=== PATIENT | female | born 1980 | race Caucasian/White ===

== ENCOUNTER 2019-10-28 13:38 | Emergency (ER) | payer OTHER, SELFPAY ==
[2019-10-28 14:10] VITALS: BP 140/72; PULSE 92; RESP 14; TEMP 36.8; O2SAT 100
--- NOTE | 2019-10-28 15:02 | ED.URI ---
HPI - URI/Sore Throat General Chief Complaint: Upper Respiratory Infection Stated Complaint: ear and sinus inf Time Seen by Provider: 10/28/19 15:03 Source: patient and RN notes reviewed Mode of arrival: ambulatory Limitations: no limitations History of Present Illness HPI Narrative: 39 year old female who presents to express care with complaints of sinus pressure and left ear pain since yesterday. Patient states she has noted some yellowish watery drainage from her left ear also with the throbbing pain in her ear. Patient states that she has been taking Ibuprofen and sinus medication for her sinus drainage and pressure. Patient denies any fevers chills or sweats, denies any cough, shortness of breath or any wheezing, SAO2 100% on room air. Patient states that she did not take a flu immunization this season. MD elicited complaint: rhinorrhea, nasal congestion and other (left ear pain) Pertinent past history: other (previous ear infections) Onset (ago): day(s) (1) Consistency: progressively worsening Able to tolerate fluids by mouth: Yes Exacerbating factors: changing head position Relieving factors: nothing Treatments prior to arrival: ibuprofen and other (sinus medication) Related Data Home Medications Medication Instructions Recorded Confirmed bupropion HCl 100 mg PO DAILY 10/28/19 10/28/19 buspirone 30 mg PO DAILY 10/28/19 10/28/19 citalopram 20 mg PO DAILY 10/28/19 10/28/19 gabapentin 600 mg PO BID 10/28/19 10/28/19 Allergies Allergy/AdvReac Type Severity Reaction Status Date / Time haloperidol [From Haldol] Allergy Unknown Verified 10/28/19 14:17 Review of Systems Review of Systems: Narrative: CONSTITUTIONAL: Denies fever, chills, or sweats. EYES: Denies visual changes, redness, or discharge. ENT:positive yellow rhinorrhea, congestion, sinus pressure,no sore throat, left ear otalgia with drainage CARDIOVASCULAR: Denies chest pain, palpitations, or edema. RESPIRATORY: Denies cough or dyspnea. GASTROINTESTINAL: Denies abdominal pain, nausea, vomiting, or diarrhea. GENITOURINARY: Denies dysuria or hematuria. SKIN: Denies rash or itching. MUSCULOSKELETAL: Denies back pain, joint pain, or myalgia. NEUROLOGIC: Denies headache, numbness, or weakness. PSYCHIATRIC: Denies anxiety or depression. All systems reviewed & are unremarkable except as noted in HPI and below PMFSH Past Medical History Medical History (Updated 11/02/19 @ 17:15 by Tsering Healy NP) Anxiety and depression Fracture of both arms Leg fracture, left Otitis media Tourettes syndrome Surgical History Surgical History (Updated 11/02/19 @ 17:15 by Tsering Healy NP) History of cholecystectomy Hx of tonsillectomy Social History Social History (Updated 11/02/19 @ 17:16 by Tsering Healy NP) Smoking status: Former smoker Tobacco type: cigarettes Additional smoking assessment comments: vapes past 6 month Living arrangements: with family Gender identity (if verbalized by the patient): Female Comments At time of signature, agree with nursing past medical, social history. There is no relevant family history pertinent to the presenting complaint Exam Narrative: Exam Narrative: GENERAL: Well-appearing, well-nourished, and in no acute distress. HEAD: Normocephalic, atraumatic. EYES: PERRLA and EOMI. ENT: Nares red swollen yellow rhinorrhea no epistaxis. Mucous membranes moist.left TM red with canal red and yellow drainage noted, Right TM normal with good light reflex, throat pink with no lesions or exudates, no tonsil enlargement NECK: Supple.no lymphadenopathy CHEST: Clear to auscultation. No respiratory distress.SAO2 100% ON ROOM AIR HEART: Regular rate and rhythm. No murmur heard. Normal peripheral pulses. ABDOMEN: Soft, nontender, nondistended, normal active bowel sounds. EXTREMITIES: Normal range of motion. No edema. SKIN: Warm, dry, no rash. NEURO: No focal deficits. Alert and oriented x3. Course Vital Signs Vital sig
== END 2019-10-28 15:30 | disposition home or self-care (01) ==
PROVIDERS: Emergency Provider Registered Nurse
DX: H65.02 Acute serous otitis media, left ear (principal); H60.502 Unspecified acute noninfective otitis externa, left ear; Z87.891 Personal history of nicotine dependence
CPT/HCPCS: 99203; G0463

== ENCOUNTER 2020-02-12 13:15 | Emergency (ER) | payer OTHER, SELFPAY ==
[2020-02-12 13:22] VITALS: BP 117/78; PULSE 90; RESP 14; TEMP 36.7; O2SAT 98
--- NOTE | 2020-02-12 13:34 | ED.FEMALEGU ---
HPI - Female Genitourinary General Chief complaint: Urogenital-Female Stated complaint: bladder infection Time Seen by Provider: 02/12/20 13:34 Source: patient and RN notes reviewed History of Present Illness HPI Narrative: Patient is a 39-year-old female who presents the urgent care with complaints of a possible UTI. Patient states that she does have history of urinary tract infections and was diagnosed approximately 1 month ago. Patient states that within the last week symptoms have returned in the last 2 days have been worse. Patient reports of dysuria, urgency, frequency, suprapubic bloating/pressure. Patient denies any fever, chills, nausea, vomiting, back pain or abdominal pain. States that she took Azo a few days ago. Was on Macrobid 1 month ago. No other acute complaints. No acute distress noted. Patient aware the plan of care. Related Data Home Medications Medication Instructions Recorded Confirmed bupropion HCl 100 mg PO DAILY 10/28/19 02/12/20 buspirone 30 mg PO DAILY 10/28/19 02/12/20 citalopram 20 mg PO DAILY 10/28/19 02/12/20 gabapentin 600 mg PO BID 10/28/19 02/12/20 Allergies Allergy/AdvReac Type Severity Reaction Status Date / Time haloperidol [From Haldol] Allergy Swelling Verified 02/12/20 13:30 of Lip/Tongue/Throat Review of Systems Review of Systems: Narrative: CONSTITUTIONAL: Denies fever, chills, or sweats. EYES: Denies visual changes, redness, or discharge. ENT: Denies rhinorrhea, congestion, sore throat, or otalgia. CARDIOVASCULAR: Denies chest pain, palpitations, or edema. RESPIRATORY: Denies cough or dyspnea. GASTROINTESTINAL: Denies abdominal pain, nausea, vomiting, or diarrhea. GENITOURINARY: Reports of dysuria, urinary frequency, urinary urgency and mild suprapubic pressure SKIN: Denies rash or itching. MUSCULOSKELETAL: Denies back pain, joint pain, or myalgia. NEUROLOGIC: Denies headache, numbness, or weakness. All other systems reviewed are negative, except as documented in HPI. [facility] Past Medical History Medical History (Updated 02/12/20 @ 13:51 by ANGELA Stallworth) Anxiety and depression Fracture of both arms Leg fracture, left Otitis media Tourettes syndrome Surgical History Surgical History (Updated 11/02/19 @ 17:15 by Tsering Healy NP) History of cholecystectomy Hx of tonsillectomy Social History Social History (Updated 11/02/19 @ 17:16 by Tsering Healy NP) Smoking status: Former smoker Tobacco type: cigarettes Additional smoking assessment comments: vapes past 6 month Gender identity (if verbalized by the patient): Female Comments At the time of my signature, I reviewed and agree with the nursing past medical, surgical, social, and family history. There is no relevant family history pertinent to the patient complaint. Exam Narrative: Exam Narrative: GENERAL: This is a well-nourished, well-developed patient, in no apparent distress. HEAD: normocephalic, atraumatic. EYES: PERRL. Sclera clear/white. Vision is grossly intact. EARS: External ears normal NOSE: External nose normal with no obvious nasal discharge, nares without redness, no rhinorrhea. THROAT: Mucous membranes moist NECK: Neck supple GASTROINTESTINAL: Abdomen soft, non-tender, nondistended. SKIN: warm, intact with no suspicious lesions or rash, good texture and turgor. NEURO: awake, alert, and oriented to person, place and time. There were no obvious focal neurologic abnormalities. EXTREMITIES: No clubbing, cyanosis, or edema. BACK: Negative bilateral CVA tenderness Course Vital Signs Vital signs: Vital Signs Temperature 98.1 F 02/12/20 13:22 Pulse Rate 90 02/12/20 13:22 Respiratory Rate 14 02/12/20 13:22 Blood Pressure 117/78 02/12/20 13:22 Pulse Oximetry 98 02/12/20 13:22 Temperature 98.1 F 02/12/20 13:22 Pulse Rate 90 02/12/20 13:22 Respiratory Rate 14 02/12/20 13:22 Blood Pressure 117/78 02/12/20 13:22 Pulse Oximetr
== END 2020-02-12 14:03 | disposition home or self-care (01) ==
PROVIDERS: Emergency Provider Nurse Practitioner Family
DX: N39.0 Urinary tract infection, site not specified (principal); F41.9 Anxiety disorder, unspecified; F32.9 Major depressive disorder, single episode, unspecified; F95.2 Tourette's disorder; F17.290 Nicotine dependence, other tobacco product, uncomplicated
CPT/HCPCS: 81003; 87077; 87086; 87088; 87186; 99213; G0463

== ENCOUNTER 2020-05-16 12:49 | Emergency (ER) | payer OTHER, SELFPAY ==
[2020-05-16 12:55] VITALS: BP 138/80; PULSE 80; RESP 20; TEMP 39.3; O2SAT 100
--- NOTE | 2020-05-16 13:08 | ED.GENADULT ---
HPI - General Adult General Chief complaint: Urogenital-Female Stated complaint: pain with urination/frequency/headaches Time Seen by Provider: 05/16/20 13:08 Source: patient Mode of arrival: ambulatory Limitations: no limitations History of Present Illness HPI narrative: 40-year-old female patient presents to the [facility] with complaints of urinary symptoms for the past 2 weeks. Patient states she has had urgency, burning and pain with urination. Patient states she started running a fever today. Denies any low back pain. Denies any nausea, vomiting or diarrhea. Patient states this is been going on and off for the last couple of months however she is just been trying to drink a lot of water and states that usually it does go away but this time it is not going away. Related Data Home Medications Medication Instructions Recorded Confirmed bupropion HCl 100 mg PO DAILY 10/28/19 02/12/20 buspirone 30 mg PO DAILY 10/28/19 02/12/20 citalopram 20 mg PO DAILY 10/28/19 02/12/20 gabapentin 600 mg PO BID 10/28/19 02/12/20 Allergies Allergy/AdvReac Type Severity Reaction Status Date / Time haloperidol [From Haldol] Allergy Swelling Verified 02/12/20 13:30 of Lip/Tongue/Throat Review of Systems Review of Systems: Narrative: CONSTITUTIONAL: Denies fever, chills, or sweats. EYES: Denies visual changes, redness, or discharge. ENT: Denies rhinorrhea, congestion, sore throat, or otalgia. CARDIOVASCULAR: Denies chest pain, palpitations, or edema. RESPIRATORY: Denies cough or dyspnea. GASTROINTESTINAL: Denies abdominal pain, nausea, vomiting, or diarrhea. GENITOURINARY: Positive dysuria, denies hematuria. SKIN: Denies rash or itching. MUSCULOSKELETAL: Denies back pain, joint pain, or myalgia. NEUROLOGIC: Denies headache, numbness, or weakness. PSYCHIATRIC: Denies anxiety or depression. [facility] Past Medical History Medical History Anxiety and depression Fracture of both arms Leg fracture, left Otitis media Tourettes syndrome Surgical History Surgical History History of cholecystectomy Hx of tonsillectomy Social History Social History Smoking status: Former smoker Tobacco type: cigarettes Additional smoking assessment comments: vapes past 6 month Gender identity (if verbalized by the patient): Female Comments At the time of my signature I agree with nursing past medical history, surgical, social, and family history. There is no relevant family history pertinent to the presenting complaint. Exam Narrative: Exam Narrative: GENERAL: Well-appearing, well-nourished, and in no acute distress. HEAD: Normocephalic, atraumatic. EYES: PERRLA and EOMI. ENT: Nares clear, no rhinorrhea or epistaxis. Mucous membranes moist. NECK: Supple. No lymphadenopathy CHEST: Clear to auscultation. No respiratory distress. HEART: Regular rate and rhythm. No murmur heard. Normal peripheral pulses. ABDOMEN: Soft, nontender, nondistended, normal active bowel sounds. No CVA tenderness on percussion EXTREMITIES: Normal range of motion. No edema. SKIN: Warm, dry, no rash. NEURO: No focal deficits. Alert and oriented x3. Course Vital Signs Vital signs: Vital Signs Temperature 39.3 C H 05/16/20 12:55 Pulse Rate 80 05/16/20 12:55 Respiratory Rate 05/16/20 12:55 Blood Pressure 138/80 05/16/20 12:55 Pulse Oximetry 100 05/16/20 12:55 Temperature 39.5 C H 05/16/20 13:20 Pulse Rate 80 05/16/20 12:55 Respiratory Rate 20 05/16/20 12:55 Blood Pressure 138/80 05/16/20 12:55 Pulse Oximetry 100 05/16/20 12:55 Vital signs reviewed. The patient has been informed that they may have pre-hypertension or Hypertension based on a BP reading in the department. I recommend that the patient call the primary care provider listed on their discharge in
[2020-05-16 13:11] VITALS: TEMP 39.5
[2020-05-16 13:20] VITALS: TEMP 39.5
[2020-05-16] MEDS: IBUPROFEN 400 MG TABLET 800 MG PO (13:20)
[2020-05-16 13:40] VITALS: TEMP 39.3
== END 2020-05-16 13:40 | disposition home or self-care (01) ==
PROVIDERS: Emergency Provider Nurse Practitioner Family
DX: N30.01 Acute cystitis with hematuria (principal); Z87.891 Personal history of nicotine dependence; F41.9 Anxiety disorder, unspecified; F32.9 Major depressive disorder, single episode, unspecified; F95.2 Tourette's disorder
CPT/HCPCS: 81003; 87077; 87086; 87088; 87186; 99213; A9270; G0463